=== PATIENT | female | born 1930 | race Caucasian/White ===

== ENCOUNTER 2018-07-10 12:08 | Emergency (ER) | payer MEDICARE, OTHER ==
[~2018-07-10] VITALS: Wt 64.7 kg
[2018-07-10] MEDS ORDERED: ASPIR LOW81 MG PO (13:32)
[2018-07-10] MEDS ORDERED: DULOXETINE60 MG PO (13:32)
[2018-07-10] MEDS ORDERED: FUROSEMIDE20 MG PO (13:33)
[2018-07-10] MEDS ORDERED: VITAMIN B122500 MC2 PO (13:33)
[2018-07-10] MEDS ORDERED: POTASSIUM CHLO10 ME8 PO (13:33)
[2018-07-10] MEDS ORDERED: COLACE100 M1 PO (13:35)
[2018-07-10] MEDS ORDERED: ATORVASTATIN CA20 MG PO (13:35)
[2018-07-10] MEDS ORDERED: PROBIOTIC1 EAC1 PO ×2 (13:35→14:01)
[2018-07-10] MEDS ORDERED: PEPCID 20MG TAB20 MG PO (13:35)
[2018-07-10] MEDS ORDERED: EXTRA STRENGTH500 MG PO (13:36)
[2018-07-10 14:01] LABS: EOS # 0.2 (0.04-0.40); EOS % 2.3 % (1.0-5.0); HEMATOCRIT 41.8 % (37.0-47.0); HEMOGLOBIN 14.4 g/dL (12.5-16.0); LYMPH# 1.9 (1.50-4.00); MEAN CELL VOLUME 90 fl (78-100); MEAN CORPUSCULAR HEMOGLOBIN 31 pg (27-31); MEAN CORPUSCULAR HGB CONC 34 g/dL (33-37); MEAN PLATELET VOLUME 9.4 fl (7.4-10.4); MONO # 0.9 (0.20-0.80); NEU # 5.7 (1.40-6.50); PLATELET COUNT 201 K/mm3 (130-400); RED BLOOD COUNT 4.66 M/mm3 (4.10-5.30); RED CELL DISTRIBUTION WIDTH 12.9 % (11.5-14.5); WHITE BLOOD COUNT 8.7 K/mm3 (4.8-10.8)
[2018-07-10] MEDS ORDERED: TUMS REGULAR S500 MG PO (14:01)
[2018-07-10 14:13] LABS: ALBUMIN 4.5 g/dL (3.5-5.0); CALCIUM 9.7 mg/dL (8.4-10.2); POTASSIUM 3.7 mmol/L (3.6-5.0); TOTAL BILIRUBIN 0.7 mg/dL (0.2-1.3); TOTAL PROTEIN 7.7 g/dL (6.3-8.2)
[2018-07-10] MEDS ORDERED: NORCO 325 MG-51 TA1 PO (14:54)
[2018-07-10 15:43] LABS: URINE APPEARANCE CLEAR; URINE COLOR LT YELLOW
[2018-07-10 15:44] LABS: PH-URINE 7.5 (5.0 - 8.0); URINE BILIRUBIN NEGATIVE (NEGATIVE); URINE BLOOD TRACE (NEGATIVE); URINE GLUCOSE NEGATIVE (NEGATIVE); URINE KETONE NEGATIVE (NEGATIVE); URINE LEUKOCYTE ESTERASE TRACE (NEGATIVE); URINE NITRATE NEGATIVE (NEGATIVE); URINE PROTEIN(semi-quant) NEGATIVE (NEGATIVE); URINE UROBILINOGEN NORMAL (NORMAL); URINE WBC 0-1 /hpf (0-3)
[2018-07-10 15:55] VITALS: BP 159/79
== END 2018-07-10 15:15 | disposition other institution (70) ==
LOC: ED 12:08
PROVIDERS: Nurse Practitioner Primary Care
DX: S06.0X9A Concussion with loss of consciousness of unspecified duration, initial encounter (principal); S01.112A Laceration without foreign body of left eyelid and periocular area, initial encounter; S91.111A Laceration without foreign body of right great toe without damage to nail, initial encounter; Z95.2 Presence of prosthetic heart valve; W18.09XA Striking against other object with subsequent fall, initial encounter; Y92.414 Local residential or business street as the place of occurrence of the external cause; Z86.73 Personal history of transient ischemic attack (TIA), and cerebral infarction without residual deficits; Z79.82 Long term (current) use of aspirin; Z79.899 Other long term (current) drug therapy

== ENCOUNTER 2018-07-10 14:01 | Inpatient (IN) | payer MEDICARE, OTHER ==
[~2018-07-10] VITALS: Ht 162.6 cm; Wt 59.1 kg
[~2018-07-10 14:01] MED LIST: ASPIR LOW81 MG PO; ATORVASTATIN CA20 MG PO; COLACE100 M1 PO; DULOXETINE60 MG PO; EXTRA STRENGTH500 MG PO; FUROSEMIDE20 MG PO; PEPCID 20MG TAB20 MG PO; POTASSIUM CHLO10 ME8 PO; PROBIOTIC1 EAC1 PO; TUMS REGULAR S500 MG PO; VITAMIN B122500 MC2 PO
[2018-07-10] MEDS ORDERED: NORCO 325 MG-51 TA1 PO (14:54)
[2018-07-10 15:37] VITALS: BP 159/79
[2018-07-10 15:41] VITALS: BP 159/79
[2018-07-10 18:22] VITALS: BP 124/78
[2018-07-10 22:57] VITALS: BP 108/62
[2018-07-11 02:39] VITALS: BP 159/82
[2018-07-11 06:22] VITALS: BP 150/70
[2018-07-11 11:00] VITALS: BP 130/71
[2018-07-11 13:21] LABS: EOS # 0.3 (0.04-0.40); EOS % 3.9 % (1.0-5.0); HEMOGLOBIN 12.9 g/dL (12.5-16.0); LYMPH# 2.2 (1.50-4.00); MEAN CELL VOLUME 92 fl (78-100); MEAN CORPUSCULAR HEMOGLOBIN 31 pg (27-31); MEAN CORPUSCULAR HGB CONC 34 g/dL (33-37); MEAN PLATELET VOLUME 9.7 fl (7.4-10.4); MONO # 0.9 (0.20-0.80); NEU # 4.2 (1.40-6.50); PLATELET COUNT 199 K/mm3 (130-400); RED BLOOD COUNT 4.15 M/mm3 (4.10-5.30); RED CELL DISTRIBUTION WIDTH 13.1 % (11.5-14.5); WHITE BLOOD COUNT 7.6 K/mm3 (4.8-10.8)
[2018-07-11 13:31] LABS: CALCIUM 9.3 mg/dL (8.4-10.2); POTASSIUM 4.6 mmol/L (3.6-5.0)
[2018-07-11 14:49] VITALS: BP 133/72
== END 2018-07-11 16:25 | disposition home or self-care (01) | DRG 90 ==
LOC: MED/SURG 14:01
PROVIDERS: ADMIT Nurse Practitioner Primary Care
PROC: 0HQ0XZZ Repair Scalp Skin, External Approach (ICD-10-PCS; principal; 2018-07-10)
DX: S06.0X0A Concussion without loss of consciousness, initial encounter (principal); W18.30XA Fall on same level, unspecified, initial encounter; I10 Essential (primary) hypertension; Z95.2 Presence of prosthetic heart valve; Z86.73 Personal history of transient ischemic attack (TIA), and cerebral infarction without residual deficits; S01.112A Laceration without foreign body of left eyelid and periocular area, initial encounter

== ENCOUNTER → 2018-07-18 | Outpatient (CLI) | payer MEDICARE, OTHER ==
[2018-07-11 14:49] VITALS: BP 133/72
[~2018-07-18] MED LIST changes: +NORCO 325 MG-51 TA1 PO
== END ==
LOC: RAD 14:40
DX: S05.12XA Contusion of eyeball and orbital tissues, left eye, initial encounter (principal); R41.82 Altered mental status, unspecified; W19.XXXA Unspecified fall, initial encounter

== ENCOUNTER → 2018-08-10 | Outpatient (CLI) | payer MEDICARE, OTHER ==
[~2018-08-10] VITALS: Ht 162.6 cm; Wt 59.1 kg
[~2018-08-10] MED LIST changes: +CALCIUM CARBONATE PO; -EXTRA STRENGTH500 MG PO; +SENNA8.6 M1 PO; -TUMS REGULAR S500 MG PO; +TYLENOL 325MG325 MG OP
[2018-08-10 12:05] VITALS: BP 147/81
== END ==
LOC: AMSURD 11:37
DX: R00.0 Tachycardia, unspecified (principal)

== ENCOUNTER 2019-10-11 09:39 | Emergency (ER) | payer MEDICARE, OTHER ==
[~2019-10-11 09:39] MED LIST changes: +B-121000 MCG PO; -VITAMIN B122500 MC2 PO
[2019-10-11] MEDS ORDERED: LISINOPRIL20 MG PO (09:57)
[2019-10-11 10:42] LABS: PH-URINE 6.5 (5.0 - 8.0); URINE APPEARANCE CLOUDY; URINE COLOR YELLOW; URINE PROTEIN(semi-quant) TRACE mg/dL (NEGATIVE)
[2019-10-11 10:43] LABS: URINE BILIRUBIN NEGATIVE (NEGATIVE); URINE BLOOD 50 ery/uL (NEGATIVE); URINE GLUCOSE NEGATIVE (NEGATIVE); URINE KETONE NEGATIVE (NEGATIVE); URINE LEUKOCYTE ESTERASE 1+ (NEGATIVE); URINE NITRATE POSITIVE (NEGATIVE); URINE UROBILINOGEN NORMAL (NORMAL); URINE WBC 16-30 /hpf (0-3)
[2019-10-11] MEDS ORDERED: MACROBID 100 M100 MG PO (10:48)
[2019-10-11 11:01] VITALS: BP 164/66
== END 2019-10-11 11:06 | disposition home or self-care (01) ==
LOC: ED 09:39
PROVIDERS: Physician Assistant
DX: N39.0 Urinary tract infection, site not specified (principal); F32.9 Major depressive disorder, single episode, unspecified; Z88.0 Allergy status to penicillin; Z79.82 Long term (current) use of aspirin

== ENCOUNTER → 2020-07-15 | Outpatient (CLI) | payer MEDICARE, OTHER ==
[~2020-07-15] MED LIST changes: +LISINOPRIL20 MG PO; +MACROBID 100 M100 MG PO
== END ==
LOC: RAD 10:07
DX: M19.041 Primary osteoarthritis, right hand (principal); M19.031 Primary osteoarthritis, right wrist; M81.0 Age-related osteoporosis without current pathological fracture